=== PATIENT | female | born 1955 | race Caucasian/White ===

== ENCOUNTER → 2017-05-29 | Outpatient (CLI) | payer OTHER ==
[~2017-05-29] MED LIST: LEVO125T6 PO
--- NOTE | 2017-05-29 17:21 | Diagnostic Imaging Report ---
Bilateral screening mammogram 2D views with tomosynthesis The current study was also evaluated with a Computer Aided Detection (CAD) system. Indication: Screening. No current complaints stated on the questionnaire. COMPARISON: 04/18/2013. Findings: The breasts are composed of scattered from densities. Occasional benign-appearing calcifications are seen. Allowing for technique and positional differences, no suspicious change is seen. IMPRESSION: No significant change. ACR BI-RADS Category 2: Benign findings. Result letter will be mailed to the patient. Note: At least 10% of breast cancer is not imaged by mammography. Dictated by: Dictated on workstation # [id number]
== END ==
LOC: RAD 12:54
PROVIDERS: ATTEND Obstetrics & Gynecology
DX: Z12.31 Encounter for screening mammogram for malignant neoplasm of breast (principal)
CPT/HCPCS: 77067

== ENCOUNTER → 2021-01-03 | Outpatient (CLI) | payer OTHER ==
--- NOTE | 2021-01-04 12:48 | Diagnostic Imaging Report ---
Indication: Routine screening. Comparison is made with prior mammogram from 05/29/2017 and 04/18/2013. 2-D and 3-D bilateral screening mammography was performed with CAD. Scattered fibroglandular densities are identified bilaterally. The overall parenchymal pattern appears stable. No mass or malignant-appearing microcalcifications are seen. Occasional benign-appearing calcifications are noted. Axillae are unremarkable. IMPRESSION: BI-RADS Category 2 No mammographic features suspicious for malignancy are identified. ACR BI-RADS Category 2: Benign findings. Result letter will be mailed to the patient. Note: At least 10% of breast cancer is not imaged by mammography. Dictated by: Dictated on workstation # [id number]
== END ==
LOC: RAD 15:15
PROVIDERS: ATTEND Obstetrics & Gynecology
DX: Z12.31 Encounter for screening mammogram for malignant neoplasm of breast (principal)
CPT/HCPCS: 77063; 77067

== ENCOUNTER → 2021-08-02 | Outpatient (CLI) | payer OTHER ==
--- NOTE | 2021-08-02 13:13 | Diagnostic Imaging Report ---
INDICATION: Postmenopausal screening COMPARISON: 04/18/2013 FINDINGS: AP Spine L1-L4: [BMD (g/cm2): 1.084] [T-Score: -1.0] [Z-Score: 0.0] [BMD Previous: 1.165] [BMD % Change: -7.0] LT Hip Neck: [BMD (g/cm2): 0.684] [T-Score: -2.5] [Z-Score: -1.5] LT Hip Total: [BMD (g/cm2):0.767] [T-Score:-1.9] [Z-Score: -1.2] [BMD Previous: 0.836] [BMD % Change: -8.3] RT Hip Neck: [BMD (g/cm2):0.752] [T-Score:-2.1] [Z-Score:-1.0] RT Hip Total: [BMD (g/cm2):0.817] [T-score:-1.5] [Z-Score:-0.8] [BMD Previous:0.850] [BMD % Change:-3.9] *Indicates significant change from prior examination based on 95% confidence level. World Health Organization criteria for BMD interpretation classify patients as Normal (T-score at or above -1.0), Osteopenic (T-score between -1.0 and -2.5) or Osteoporotic (T-score at or below -2.5). LIMITATIONS AND MODIFICATION: None. FRACTURE RISK (FRAX SCORE): The ten year probability of (%): Major Osteoporotic Fracture: [12.7] Hip Fracture: [2.6] IMPRESSION: 1. Osteoporosis. 2. Bone mineral density has decreased by a statistically significant amount, as detailed above. 3. See below National Osteoporosis Foundation guidelines on when to potentially initiate pharmacologic therapy. Based on the National Osteoporosis Foundation Guidelines, pharmacologic treatment should be initiated in any of the following, unless clinical conditions suggest otherwise: * Any patient with prior fragility fracture of the hip or vertebrae. A spine fracture indicates 5X risk for subsequent spine fracture and 2X risk for subsequent hip fracture. * Osteoporosis (T-score <-2.5). * Postmenopausal women and men age 50 and older with low bone mass/osteopenia (T-score between -1.0 and -2.5) by DXA and 10-year major osteoporotic fracture greater than 20% or a 10-year probability of hip fracture greater than 3%. These fracture risks are supplied above in the FRAX score, if applicable. * Clinician judgement and/or patient preferences may indicate treatment for people with 10-year fracture probabilities above or below these levels. Dictated by: Dictated on workstation # [id number]
== END ==
LOC: RAD 11:00
PROVIDERS: ATTEND Physician Assistant
DX: Z13.820 Encounter for screening for osteoporosis (principal); M81.0 Age-related osteoporosis without current pathological fracture; Z78.0 Asymptomatic menopausal state
CPT/HCPCS: 77080

== ENCOUNTER 2021-08-15 05:31 | Outpatient (CLI) | payer OTHER ==
[~2021-08-15] VITALS: Ht 165.1 cm; Wt 85.1 kg
== END 2021-08-15 15:37 | disposition home or self-care (01) ==
LOC: PREOP 05:31
PROVIDERS: ATTEND Surgery
DX: Z01.818 Encounter for other preprocedural examination (principal)

== ENCOUNTER 2021-08-23 06:55 | Day surgery (SDC) | payer OTHER ==
[~2021-08-23] VITALS: Ht 165.1 cm; Wt 85.1 kg
[2021-08-23] MEDS ORDERED: LACTATED RINGERS 1,000 ML IV STA (06:59)
[2021-08-23] MEDS ORDERED: LACTATED RINGERS 1,000 ML IV ONE (07:01)
[2021-08-23 07:13] VITALS: BP 131/79
[2021-08-23] MEDS ORDERED: PROPOFOL INJECTION 50 ML IV ONE (07:58)
[2021-08-23] MEDS ORDERED: MIDAZOLAM 2 MG/2 ML (VERSED) VIAL ONE (07:58)
--- NOTE | 2021-08-23 08:29 | Progress Note-Pre Operative ---
Pre-Operative Progress Note H&P Reviewed The H&P was reviewed, patient examined and no changes noted. Date Seen by Provider: Aug 23, 2021 Time Seen by Provider: 08:28 Date H&P Reviewed: Aug 23, 2021 Time H&P Reviewed: 08:28 Pre-Operative Diagnosis: hx polyps, family hx colon cancer MARLENA VEGA DO Aug 23, 2021 08:29
--- NOTE | 2021-08-23 08:54 | Progress Note-Post Operative ---
Post-Operative Progess Note Surgeon (s)/Microfiche Camera Operator (s) Surgeon MARLENA VEGA DO Microfiche Camera Operator: na Pre-Operative Diagnosis hx polyps, family hx colon cancer Post-Operative Diagnosis colon polyp Procedure & Operative Findings Date of Procedure 08/23/21 Procedure Performed/Findings colonoscopy c hot bx polypectomy Anesthesia Type per [facility] Estimated Blood Loss Estimated blood loss (mL): none Specimens/Packing Specimens Removed transverse colon polyp MARLENA VEGA DO Aug 23, 2021 08:53
--- NOTE | 2021-08-23 08:54 | Discharge Inst-Simple/Standard ---
Discharge Inst-Standard Patient Instructions/Follow Up Plan of Care/Instructions/FU: 2 weeks Héctor Activity as Tolerated: Yes Discharge Diet: Regular Diet MARLENA VEGA DO Aug 23, 2021 08:54
[2021-08-23 08:55] VITALS: BP 113/66
[2021-08-23 09:00] VITALS: BP 105/66
[2021-08-23 09:33] VITALS: BP 106/67
--- NOTE | 2021-08-23 10:19 | Anesthesia-General Post-Op ---
MAC Patient Condition Mental Status/LOC: Same as Preop Cardiovascular: Satisfactory Nausea/Vomiting: Absent Respiratory: Satisfactory Pain: Controlled Complications: Absent Post Op Complications Complications None Follow Up Care/Instructions Patient Instructions None needed. Anesthesiology Discharge Order Discharge Order Patient was seen after the procedure and she was doing well, no complaints, stable vital signs, no apparent adverse anesthesia problems. DNUCAN ESPOSITO 15, 2022 10:19
--- NOTE | 2021-08-23 10:20 | OPERATIVE REPORT ---
DATE OF SERVICE: 08/23/2021 PREOPERATIVE DIAGNOSIS: Family history of colon cancer, history of polyps. POSTOPERATIVE DIAGNOSIS: Colon polyp, transverse colon. PROCEDURE: Colonoscopy with hot biopsy polypectomy. SURGEON: Marlena Anaya DO ANESTHESIA: Per [facility]. BLOOD LOSS: None. COMPLICATIONS: None. INDICATIONS: The patient is a 66-year-old female needing screening colonoscopy. She understands risks and benefits of procedure and wishes to proceed. Consent was signed in the chart. DESCRIPTION OF PROCEDURE: The patient was taken to the endoscopy suite, placed in left lateral recumbent position. Timeout was performed. Digital rectal exam was performed. No palpable polyps, masses or ulcerations. Scope was inserted in the rectum and advanced all the way to cecum with minimal difficulty. Prep was adequate. Scope was then slowly retracted back. No polyps, masses or ulcerations within the cecum, ascending colon; and in the transverse colon, a small polyp was present, which hot biopsy polypectomy was performed. Scope was then continuously retracted back. No polyps, masses or ulcerations within remainder of the transverse, descending and sigmoid colon. Once in the rectum, scope was retroflexed just noting some slight internal hemorrhoids, no other pathology. Scope was returned to its normal position, slowly withdrawn until completely removed. The patient tolerated procedure well without any complications. She was taken to recovery room in stable condition. RECOMMENDATIONS: The patient will need repeat colonoscopy in 5 years. Any issues before that be seen at that time. The patient will follow up in 2 weeks to discuss pathology results. Job ID: [id number] DocumentID: [id number] Dictated Date: 08/23/2021 08:56:41 Care Director Rn Date: 08/23/2021 10:20:07 Dictated By: MARLENA ANAYA DO
== END 2021-08-23 09:35 | disposition home or self-care (01) ==
LOC: ENDO 06:55
PROVIDERS: ATTEND Surgery
DX: Z12.11 Encounter for screening for malignant neoplasm of colon (principal); D12.3 Benign neoplasm of transverse colon; K64.8 Other hemorrhoids; K63.89 Other specified diseases of intestine; Z80.0 Family history of malignant neoplasm of digestive organs

== ENCOUNTER → 2023-03-27 | Outpatient (CLI) | payer MEDICARE, OTHER ==
--- NOTE | 2023-03-27 14:44 | Diagnostic Imaging Report ---
INDICATION: Postmenopausal state. COMPARISON: 08/02/2021. FINDINGS: AP Spine L1-L4: [BMD (g/cm2): 1.100] [T-Score: -0.8] [Z-Score: 0.3] [BMD Previous: 1.084] [BMD % Change: 1.5] LT Hip Neck: [BMD (g/cm2): 0.722] [T-Score: -2.3] [Z-Score: -1.1] LT Hip Total: [BMD (g/cm2):0.787] [T-Score:-1.7] [Z-Score: -0.9] [BMD Previous: 0.767] [BMD % Change: 2.6] RT Hip Neck: [BMD (g/cm2):0.766] [T-Score:-2.0] [Z-Score:-0.8] RT Hip Total: [BMD (g/cm2):0.829] [T-score:-1.4] [Z-Score:-0.5] [BMD Previous:0.817] [BMD % Change:1.5] *Indicates significant change from prior examination based on 95% confidence level. World Health Organization criteria for BMD interpretation classify patients as Normal (T-score at or above -1.0), Osteopenic (T-score between -1.0 and -2.5) or Osteoporotic (T-score at or below -2.5). LIMITATIONS AND MODIFICATION: None. FRACTURE RISK (FRAX SCORE): The ten year probability of (%): Major Osteoporotic Fracture: [11.8] Hip Fracture: [2.2] IMPRESSION: 1. Osteopenia (Low bone mass). 2. No significant change in bone mineral density since prior examination. 3. See below National Osteoporosis Foundation guidelines on when to potentially initiate pharmacologic therapy. Based on the National Osteoporosis Foundation Guidelines, pharmacologic treatment should be initiated in any of the following, unless clinical conditions suggest otherwise: * Any patient with prior fragility fracture of the hip or vertebrae. A spine fracture indicates 5X risk for subsequent spine fracture and 2X risk for subsequent hip fracture. * Osteoporosis (T-score <-2.5). * Postmenopausal women and men age 50 and older with low bone mass/osteopenia (T-score between -1.0 and -2.5) by DXA and 10-year major osteoporotic fracture greater than 20% or a 10-year probability of hip fracture greater than 3%. These fracture risks are supplied above in the FRAX score, if applicable. * Clinician judgement and/or patient preferences may indicate treatment for people with 10-year fracture probabilities above or below these levels. Dictated by: Dictated on workstation # [id number]
== END ==
LOC: RAD 14:00
PROVIDERS: ATTEND Physician Assistant
DX: M85.852 Other specified disorders of bone density and structure, left thigh (principal); M85.851 Other specified disorders of bone density and structure, right thigh
CPT/HCPCS: 77080